=== PATIENT | male | born 1970 | race American Indian/Alaskan Native ===

== ENCOUNTER 2018-07-18 11:34 | Emergency (ER) | payer BC ==
[2018-07-18 11:57] VITALS: BP 112/64
== END 2018-07-18 20:17 | disposition left against medical advice (07) ==
LOC: ED 11:34
DX: R06.02 Shortness of breath (principal); Z53.21 Procedure and treatment not carried out due to patient leaving prior to being seen by health care provider

== ENCOUNTER 2019-08-20 22:04 | Emergency (ER) | payer BC, MEDICARE ==
[~2019-08-20 22:04] MED LIST: CALCIUM CHLORIDE 1,000 MG/10 ML SYRINGE IV ONE; EPINEPHrine 1:10,000 1 MG/10 ML SYRINGE ONE; SODIUM BICARB 8.4% 50 MEQ/50 ML SYRINGE IV ONE
[2019-08-20 23:11] VITALS: BP 00/00
--- NOTE | 2019-08-20 23:19 | Emergency Department Report ---
HPI - General Time Seen by Provider: 08/20/19 22:13 - HPI HPI: 49-year-old -[place] male presents to the emergency department via EMS from home in cardiac arrest. The patient was allegedly found in the bathtub unresponsive with shallow breathing. EMS was called and found the patient the pulseless. He was intubated with a 8.0 ET tube. A right tibial IO was placed and the patient began receiving chest compressions along with ACLS protocol. Prior to arrival in the emergency department the patient had received 5 rounds of epinephrine and was given a dose of calcium. EMS said the patient had 2 or 3 episodes with return of spontaneous circulation but they would only last for about one or 2 minutes before he once again became pulseless. The rhythm apparently kept changing and at one point he had either V. fib or V. tach and received a 360 J defibrillation. The patient presents to the emergency department still pulseless, unresponsive and in PDA. The patient obviously was a poor historian but I was later able to speak with the patient's . The patient has a history of end-stage renal disease on hemodialysis, AICD in place, diabetes, vascular issues. He missed his last dialysis session on Saturday because he was not feeling well. He has been seen multiple vascular doctors for issues with his left arm fistula and some amputations that he has needed it his fingers and foot. Family says that he has been feeling weak for the past few days and recently was having difficulty moving his extremities due to the weakness. ED Past Medical Hx - Past Medical History Previous Medical History?: Yes Hx Hypertension: Yes Hx Heart Attack/AMI: No Hx Congestive Heart Failure: Yes (Echo Dec 2013- EF of 15-20%) Hx Diabetes: Yes Hx Renal Disease: Yes Hx Asthma: No Hx COPD: No Hx HIV: No Additional medical history: Anemia of chronic disease - Surgical History Past Surgical History?: Yes Hx Pacemaker: Yes Hx Internal Defibrillator: Yes Additional Surgical History: pacemaker/defib. Patient denies any chance he has sickle cell disease or sickle cell trait, he states he has been tested - Social History Smoking Status: Never Smoker Substance Use Type: None - Medications Home Medications: Home Medications Medication Instructions Recorded Confirmed Last Taken Type Aspirin 325 mg PO QDAY 01/10/14 01/10/14 01/10/14 History Hydralazine HCl [hydrALAZINE] 100 mg PO Q12H 01/10/14 01/10/14 01/10/14 History Insulin Aspart Prot/Aspart(Nf) 0 unit SQ QDDIAB 01/10/14 01/10/14 01/10/14 History [NovoLOG Mix 70/30 VIAL] amLODIPine 10 mg PO DAILY 01/10/14 01/10/14 01/10/14 History carvediloL [Coreg] 25 mg PO BID 01/10/14 01/10/14 01/10/14 History Furosemide [Lasix] 20 mg PO BID #60 tablet 01/14/14 Unknown Rx Spironolactone [Aldactone] 25 mg PO QDAY #30 tablet 01/14/14 Unknown Rx ED Review of Systems ROS: Stated complaint: CARDIAC ARREST Other details as noted in HPI Comment: Unobtainable due to pts medical conditions Physical Exam - Physical Exam Vital Signs: Vital Signs 08/20/19 22:05 Pulse Rate 0 L Respiratory 0 L Rate Blood Pressure 00/00 [Left] Physical Exam: GENERAL: Patient is ill-appearing and unresponsive. HENT: Normocephalic. Atraumatic. Endotracheal tube in place. EYES: Pupils are fixed and dilated. NECK: Supple. Trachea appears midline. CHEST/LUNGS: There are no spontaneous respirations. HEART/CARDIOVASCULAR: There are no spontaneous heart sounds. ABDOMEN: Abdomen is soft. There is no abdominal distention. SKIN: Skin is cool but dry. There is a healing midsternal wound from previous open heart surgery. NEURO: Unresponsive. Does not withdraw to painful stimuli. Does not follow any commands. MUSCULOSKELETAL: Left below-knee amputation. There is no evidence of acute injury. No palpable femoral or radial pulses. ED Course Vital Signs 08/20/19 22:05 Pulse Rate 0 L Respiratory 0 L Rate Blood Pressure 00/00 [Left] ED Medical Decision Making - Medical Decision Making The patient presented to the emergency department he had already been intubated, received an IO, got 5 rounds of epinephrine, one dose of calcium, one defibrillation. He was brought to room 19 and switch to our gurney and immediately chest compressions continued. He received bag valve ventilation through the ET tube. We continued ACLS protocol. We did 3 rounds of ACLS including epinephrine, sodium bicarbonate. Each rhythm check the patient was pulseless electrical activity. At this point the patient had been down for close to one hour. He had received 8 total rounds of epinephrine. I took the bedside ultrasound and looked at the patient's heart and there was no movement, squeeze or even flutter. I then went and spoke with the patient's regarding the patient's expiration. - Differential Diagnosis hyperkalemia, NM, PE, CVA Critical Care Time: Yes Critical care time in (mins) excluding proc time.: 31 Critical care attestation.: If time is entered above; I have spent that time in minutes in the direct care of this critically ill patient, excluding procedure time. Critical care time was spent on this patient and doing his initial evaluation, supervision of ACLS protocol and family discussion. Critical Care Time: 31 minutes ED Disposition Clinical Impression: Cardiac arrest Acute respiratory failure Qualifiers: Respiratory failure complication: unspecified whether with hypoxia or hypercapnia Qualified Code(s): J96.00 - Acute respiratory failure, unspecified whether with hypoxia or hypercapnia Disposition: DC-20 Is pt being admited?: No Time of Disposition: 23:23
== END 2019-08-20 23:23 ==
LOC: ED 22:04
DX: I46.9 Cardiac arrest, cause unspecified (principal); J96.00 Acute respiratory failure, unspecified whether with hypoxia or hypercapnia; I11.0 Hypertensive heart disease with heart failure; I50.9 Heart failure, unspecified; E11.9 Type 2 diabetes mellitus without complications; Z86.2 Personal history of diseases of the blood and blood-forming organs and certain disorders involving the immune mechanism; Z95.818 Presence of other cardiac implants and grafts; Z79.899 Other long term (current) drug therapy
CPT/HCPCS: 92950; 99285; J0171